=== PATIENT | female | born 2000 | race Two or more races ===

== ENCOUNTER 2021-11-09 09:54 | Emergency (ER) | payer OTHER, SELFPAY ==
[~2021-11-09] VITALS: Ht 167.6 cm; Wt 72.3 kg
[2021-11-09] MEDS ORDERED: NS 1,000 ML IV ONE (12:05)
[2021-11-09 13:10] LABS: BASO # 0.1 10^3/uL (0.0-0.2); BASO % 0.5 % (0.0-1.0); EOS # 0.1 10^3/uL (0.0-0.5); EOS % 0.5 % (0.0-3.0); HEMATOCRIT 41.3 % (36.0-47.0); HEMOGLOBIN 13.1 g/dl (12.0-15.5); LYMPH # 1.4 10^3/uL (1.5-5.0); LYMPH % 9.2 % (24.0-44.0); MEAN CORPUSCULAR HEMOGLOBIN 26.8 pg (27.0-33.0); MEAN CORPUSCULAR HGB CONC 31.7 g/dl (32.0-36.5); MEAN CORPUSCULAR VOLUME 84.6 fl (80.0-96.0); MONO % 11.9 % (2.0-8.0); NEUTROPHILS # 11.7 10^3/uL (1.5-8.5); NEUTROPHILS % 77.4 % (36.0-66.0); PLATELET COUNT, AUTOMATED 186 10^3/uL (150-450); RED BLOOD COUNT 4.88 10^6/uL (4.00-5.40); WHITE BLOOD COUNT 15.1 10^3/uL (4.0-10.0)
[2021-11-09 13:19] LABS: C REACTIVE PROTEIN QUANTITATIV 5.11 MG/DL (0.00-0.30)
[2021-11-09 13:34] LABS: MONO SCRN NEGATIVE (NEGATIVE)
[2021-11-09 13:43] LABS: MONO # 1.8 10^3/uL (0.0-0.8)
[2021-11-09 13:45] LABS: ERYTHROCYTE SEDIMENTATION RATE 24 mm/hr (0-20)
[2021-11-09] MEDS ORDERED: KETOROLAC 30 MG/ML 1ML VIAL IV ONE (13:55)
[2021-11-09] MEDS ORDERED: dexameTHASONE 20MG/5ML VIAL (J1100 PER 1MG) IV ONE (13:55)
[2021-11-09 14:39] LABS: HCG, SERUM QUANTITATIVE < 1.0 MIU/ML
[2021-11-09] MEDS ORDERED: ISOVUE-370 76% 100ML VIAL As Ordered ONE (14:50)
[2021-11-09] MEDS ORDERED: AMPICILLIN SOD/SULBACTAM SOD 3 GM in D5W MINI-BAG PLUS 100 ML IV ONE (14:50)
[2021-11-09] MEDS ORDERED: AMOX875T2 PO (15:55)
[2021-11-09] MEDS ORDERED: LIDO2SOL17 PO ×2 (15:56→15:57)
[2021-11-09] MEDS ORDERED: LIDOCAINE VISCOUS 2% SOLN 15ML UDC SSP ONE (16:00)
[2021-11-09 16:25] VITALS: BP 141/99
== END 2021-11-09 16:21 | disposition home or self-care (01) ==
LOC: M ED 09:54
DX: J03.90 Acute tonsillitis, unspecified (principal); J35.1 Hypertrophy of tonsils
CPT/HCPCS: 70491; 80047; 83605; 84702; 85025; 85652; 86140; 86308; 87880; 96361; 96365; 96375; 99284; J0295; J1100; J1885; Q9967

== ENCOUNTER 2023-01-27 16:42 | Emergency (ER) | payer OTHER ==
[~2023-01-27] VITALS: Ht 167.6 cm; Wt 67.6 kg
[~2023-01-27 16:42] MED LIST: AMOX875T2 PO; LIDO15SO PO
[2023-01-27] MEDS ORDERED: VITA1CAP25 (17:00)
[2023-01-27] MEDS ORDERED: VANI1CRE5 (17:00)
[2023-01-27] MEDS ORDERED: ESCITALOPRAM (17:00)
[2023-01-27] MEDS ORDERED: JUNE1TAB (17:00)
[2023-01-27 21:53] LABS: CK-MB VALUE MASS 1.5 NG/ML (<3.6)
[2023-01-27 21:55] LABS: CPK CREATINE PHOSPHOKINASE 98 U/L (34-145); MB/CK RELATIVE INDEX 1.53 (< OR =4)
[2023-01-27 22:00] LABS: HCG, SERUM QUALITATIVE NEGATIVE (NEGATIVE)
[2023-01-27 22:19] VITALS: BP 116/68; TEMP 98.1; O2SAT 98
== END 2023-01-27 22:23 | disposition home or self-care (01) ==
LOC: M ED 16:42
DX: R42 Dizziness and giddiness (principal); Z79.899 Other long term (current) drug therapy

== ENCOUNTER → 2023-03-02 | Outpatient (CLI) | payer OTHER ==
[~2023-03-02] MED LIST changes: +ESCITALOPRAM; +JUNE1TAB; +PROHANCE 279.3MG/ML 15ML VIAL As Ordered ONE; +VANI1CRE5; +VITA1CAP25
== END ==
LOC: M RAD 08:51
PROVIDERS: ATTEND Physician Assistant
DX: H57.89 Other specified disorders of eye and adnexa (principal); R89.9 Unspecified abnormal finding in specimens from other organs, systems and tissues
CPT/HCPCS: 70553; A9576

== ENCOUNTER 2023-03-16 13:33 | Emergency (ER) | payer OTHER ==
[~2023-03-16] VITALS: Ht 167.6 cm; Wt 66.9 kg
[~2023-03-16 13:33] MED LIST changes: -PROHANCE 279.3MG/ML 15ML VIAL As Ordered ONE
[2023-03-16] MEDS ORDERED: EPIN0.3I11 (13:55)
[2023-03-16] MEDS ORDERED: ACET250T2 (13:55)
[2023-03-16] MEDS ORDERED: NS 1,000 ML IV ONE (15:30)
[2023-03-16 16:33] LABS: BASO # 0.1 10^3/uL (0.0-0.2); BASO % 0.9 % (0.0-1.0); EOS # 0.3 10^3/uL (0.0-0.5); EOS % 3.8 % (0.0-3.0); HEMATOCRIT 38.1 % (36.0-47.0); HEMOGLOBIN 12.7 g/dl (12.0-15.5); LYMPH # 2.5 10^3/uL (1.5-5.0); LYMPH % 35.9 % (24.0-44.0); MEAN CORPUSCULAR HEMOGLOBIN 27.7 pg (27.0-33.0); MEAN CORPUSCULAR HGB CONC 33.3 g/dl (32.0-36.5); MEAN CORPUSCULAR VOLUME 83.2 fl (80.0-96.0); MONO # 0.7 10^3/uL (0.0-0.8); MONO % 9.7 % (2.0-8.0); NEUTROPHILS # 3.5 10^3/uL (1.5-8.5); NEUTROPHILS % 49.6 % (36.0-66.0); PLATELET COUNT, AUTOMATED 194 10^3/uL (150-450); RED BLOOD COUNT 4.58 10^6/uL (4.00-5.40)
[2023-03-16 17:52] LABS: FREE T4 1.07 NG/DL (0.89-1.76); THYROID STIMULATING HORMONE 1.085 uIU/ML (0.55-4.78)
[2023-03-16 17:56] LABS: BLOOD UREA NITROGEN 14 MG/DL (9-23); CALCIUM LEVEL 8.5 MG/DL (8.5-10.1); CARBON DIOXIDE LEVEL 22 MMOL/L (20-31); CHLORIDE LEVEL 111 MMOL/L (98-107); CREATININE FOR GFR 0.51 MG/DL (0.55-1.30); GLOMERULAR FILTRATION RATE > 60.0 (>60); GLUCOSE, FASTING 89 MG/DL (60-100); MAGNESIUM LEVEL 1.9 MG/DL (1.8-2.4); SODIUM LEVEL 142 MMOL/L (136-145)
[2023-03-16 17:57] LABS: INR 1.07; PROTHROMBIN TIME 13.6 SECONDS (12.5-14.5)
[2023-03-16 17:58] LABS: PARTIAL THROMBOPLASTIN TIME 30.9 SECONDS (24.8-34.2)
[2023-03-16] MEDS ORDERED: SUMA50TA2 PO (18:40)
[2023-03-16] MEDS ORDERED: ONDA4TAB6 PO (18:40)
[2023-03-16 18:51] VITALS: BP 122/64; TEMP 98.1; O2SAT 99
== END 2023-03-16 18:54 | disposition home or self-care (01) ==
LOC: M ED 13:33
DX: R51.9 Headache, unspecified (principal); H57.11 Ocular pain, right eye; Z79.83 Long term (current) use of bisphosphonates; Z79.899 Other long term (current) drug therapy

== ENCOUNTER → 2023-07-19 | Outpatient (CLI) | payer OTHER ==
[~2023-07-19] MED LIST changes: +ACET250T18; +EPIN0.3I11; -LIDO15SO PO; +LIDO15SO8 PO; +ONDA4TAB6 PO; +SUMA50TA2 PO
== END ==
LOC: M RAD 09:06
PROVIDERS: ATTEND Physician Assistant Medical
DX: R51.9 Headache, unspecified (principal)